=== PATIENT | male | born 1970 | race Hispanic/Latino ===

== ENCOUNTER 2018-12-13 15:38 | Emergency (ER) | payer OTHER ==
[2018-12-13] MEDS ORDERED: ACETAMINOPHEN-CODEINE 300/30MG TAB ONE (17:30)
== END 2018-12-13 18:00 | disposition home or self-care (01) ==
LOC: EDH 15:38
DX: S80.11XA Contusion of right lower leg, initial encounter (principal); I10 Essential (primary) hypertension; E78.5 Hyperlipidemia, unspecified; W18.39XA Other fall on same level, initial encounter; Y93.01 Activity, walking, marching and hiking; Y92.89 Other specified places as the place of occurrence of the external cause; Y99.8 Other external cause status
CPT/HCPCS: 73590

== ENCOUNTER → 2021-05-21 | Outpatient (CLI) | payer OTHER | END | disposition home or self-care (01) | LOC: SHCH 15:19 | PROVIDERS: ATTEND Internal Medicine Cardiovascular Disease | DX: I08.3 Combined rheumatic disorders of mitral, aortic and tricuspid valves (principal); I11.9 Hypertensive heart disease without heart failure; E11.9 Type 2 diabetes mellitus without complications | CPT/HCPCS: 93306; 93356 ==

== ENCOUNTER → 2022-03-31 | Outpatient (CLI) | payer OTHER ==
[~2022-03-31] MED LIST: IOHEXOL 350 MG/ML 100ML INFUS..BTL IV ONE
== END | disposition home or self-care (01) ==
LOC: RAH 08:08
PROVIDERS: ATTEND Internal Medicine Gastroenterology
DX: K76.89 Other specified diseases of liver (principal); C18.9 Malignant neoplasm of colon, unspecified; R10.30 Lower abdominal pain, unspecified; Z90.49 Acquired absence of other specified parts of digestive tract
CPT/HCPCS: 74178; Q9967

== ENCOUNTER 2022-08-23 06:40 | Day surgery (SDC) | payer OTHER ==
[2022-08-19 12:55] LABS: HEMATOCRIT 37.4 % (42-54); MEAN CORPUSCULAR HEMOGLOBIN 29.5 pg (27.0-33.0); MEAN CORPUSCULAR HGB CONC 33.2 g/dL (32.0-36.0); MEAN CORPUSCULAR VOLUME 88.8 fL (79-99); RED BLOOD CELL COUNT(AUTO) 4.21 MIL/uL (4.50-6.20); WHITE BLOOD COUNT (AUTO) 11.4 K/uL (4.8-10.8)
[2022-08-19 13:03] VITALS: BP 155/82
[2022-08-19 13:04] LABS: POTASSIUM 3.3 mmol/L (3.5-5.1)
[2022-08-19 13:06] LABS: INR 0.94 (0.85-1.15); PROTHROMBIN TIME 10.3 SEC (9.6-11.6)
[2022-08-19 13:08] LABS: PARTIAL THROMBOPLASTIN TIME 28.5 SEC (26.3-35.5)
[2022-08-23] VITALS (13 sets, daily range): BP systolic 127–151; BP diastolic 71–85
[~2022-08-23] VITALS: Ht 165.1 cm; Wt 92.3 kg
[~2022-08-23 06:40] MED LIST changes: +AMLO-258 PO; +ATOR10TA69 PO; +BUPIVACAINE/PF 0.5% 30ML VIAL ONE; +CEFAZOLIN SODIUM 1 GM VIAL ONE; +FOLI1TAB85 PO; -IOHEXOL 350 MG/ML 100ML INFUS..BTL IV ONE; +LEVO50CA4 PO; +LIDOCAINE HCL 1% 20 ML VIAL ONE; +METO25TA6 PO; +TAMS-1 PO
[2022-08-23] MEDS ORDERED: CEFAZOLIN SODIUM 2 GM VIAL ONE (06:50)
[2022-08-23] MEDS ORDERED: 0.9% NACL 500ML IV.SOLN 500 ML IV ONE (06:50)
[2022-08-23 07:13] LABS: POTASSIUM 3.9 mmol/L (3.5-5.1)
[2022-08-23 07:18] LABS: CREATININE 9.2 mg/dL (0.5-1.5)
[2022-08-23] MEDS ORDERED: CEFAZOLIN SODIUM 2 GM VIAL IVPB PRN (08:00)
[2022-08-23] MEDS ORDERED: CEFAZOLIN SODIUM 1 GM VIAL ONE (08:21)
[2022-08-23] MEDS ORDERED: MIDAZOLAM HCL 1 MG/ML 2ML VIAL ONE (11:49)
[2022-08-23] MEDS ORDERED: LIDOCAINE PF 100MG/5ML (2%) SYRINGE 5ML ONE (11:49)
[2022-08-23] MEDS ORDERED: DEXAMETHASONE SOD PHOSPHATE 10MG/ML 1ML VIAL ONE (11:49)
[2022-08-23] MEDS ORDERED: SUCCINYLCHOLINE CHLORIDE 20 MG/ML 10 ML VIAL ONE (11:49)
[2022-08-23] MEDS ORDERED: ROCURONIUM 10MG/1ML SYR 10 MG/ML ML ONE (11:50)
[2022-08-23] MEDS ORDERED: NEOSTIGMINE 5MG/5ML SYR IV ONE (11:50)
[2022-08-23] MEDS ORDERED: GLYCOPYRROLATE 1 MG/5 ML SYRINGE ONE (11:50)
[2022-08-23] MEDS ORDERED: PROPOFOL 10 MG/ML 20ML VIAL IV ONE (11:50)
[2022-08-23] MEDS ORDERED: ONDANSETRON 4MG INJ ONE (11:50)
[2022-08-23] MEDS ORDERED: FENTANYL CITRATE PF 50 MCG/1 ML 2ML VIAL ONE (12:12)
[2022-08-23] MEDS ORDERED: HEPARIN 10,000 UNIT/10ML (1,000 UNIT/ML) VIAL ONE (12:13)
[2022-08-23] MEDS ORDERED: SUGAMMADEX SODIUM 200 MG/2 ML VIAL IV ONE (12:59)
== END 2022-08-23 14:25 | disposition home or self-care (01) ==
LOC: DAH 06:40
PROVIDERS: ATTEND Thoracic Surgery (Cardiothoracic Vascular Surgery)
DX: I12.0 Hypertensive chronic kidney disease with stage 5 chronic kidney disease or end stage renal disease (principal); E11.22 Type 2 diabetes mellitus with diabetic chronic kidney disease; N18.6 End stage renal disease; E03.9 Hypothyroidism, unspecified; Z20.822 Contact with and (suspected) exposure to COVID-19; Z79.899 Other long term (current) drug therapy; Z98.890 Other specified postprocedural states; Z86.73 Personal history of transient ischemic attack (TIA), and cerebral infarction without residual deficits; Z99.2 Dependence on renal dialysis
CPT/HCPCS: 80048 ×2; 85027; 85610; 85730; 86850 ×2; 86900 ×2; 86901 ×2; 87426; 36415 ×2; 71045; 93005; 36821; A4222; A6260; A4663; A6207; J7030; A4215 ×2; A4452; J7040; J3010; J0690 ×3; J3490 ×2; J1100; J2710; J0330; J2001; J1644 ×3; J2250; J2704; J2405; G0168; A4649 ×2; C1713 ×2; A4223; A4221